=== PATIENT | female | born 1980 ===

== ENCOUNTER 2017-03-24 15:27 | Emergency (ER) | payer OTHER ==
[~2017-03-24] VITALS: Ht 165.1 cm; Wt 68.0 kg
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
[2017-03-24 16:44] VITALS: BP 111/66
== END 2017-03-24 16:44 | disposition home or self-care (01) ==
LOC: ER 15:28
DX: J02.8 Acute pharyngitis due to other specified organisms (principal); B97.89 Other viral agents as the cause of diseases classified elsewhere
CPT/HCPCS: 36415; 86403; 87070; A4663